=== PATIENT | female | born 1995 | race Two or more races ===

== ENCOUNTER 2016-09-19 21:22 | Emergency (ER) | payer MEDICAID ==
[~2016-09-19] VITALS: Ht 157.5 cm; Wt 70.8 kg
[2016-09-19 21:37] VITALS: BP 131/78
== END 2016-09-20 01:34 | disposition left against medical advice (07) ==
LOC: ER 21:23
DX: R21 Rash and other nonspecific skin eruption (principal); Z53.21 Procedure and treatment not carried out due to patient leaving prior to being seen by health care provider

== ENCOUNTER 2017-12-14 23:14 | Emergency (ER) | payer MEDICAID ==
[~2017-12-14] VITALS: Ht 157.5 cm; Wt 77.1 kg
[2017-12-14 23:43] VITALS: BP 148/76
== END 2017-12-15 02:14 | disposition home or self-care (01) ==
LOC: ER 23:14
DX: J30.9 Allergic rhinitis, unspecified (principal); H69.83 Other specified disorders of Eustachian tube, bilateral

== ENCOUNTER 2024-01-20 10:47 | Emergency (ER) | payer MEDICAID ==
[~2024-01-20] VITALS: Ht 157.5 cm; Wt 86.3 kg
[2024-01-20 11:30] VITALS: BP 128/70; PULSE 100; RESP 15; TEMP 97.8; O2SAT 98
== END 2024-01-20 12:05 | disposition home or self-care (01) ==
LOC: ER 10:47 → EDBD 10:47 → ER 12:05
DX: S63.501A Unspecified sprain of right wrist, initial encounter (principal); M25.532 Pain in left wrist; V49.40XA Driver injured in collision with unspecified motor vehicles in traffic accident, initial encounter; Y93.89 Activity, other specified; Y92.89 Other specified places as the place of occurrence of the external cause; Y99.8 Other external cause status
CPT/HCPCS: 73100